=== PATIENT | female | born 1990 | race Caucasian/White ===

== ENCOUNTER 2023-06-22 11:20 | Emergency (ER) | payer BC, SELFPAY ==
[2023-06-22 11:20] VITALS: BMI 24.3
[2023-06-22 11:25] VITALS: BP 137/75
--- NOTE | 2023-06-22 11:41 | ED.GENMED ---
History of Present Illness
General
Chief Complaint: Visual Problem
Time Seen by Provider: 06/22/23 11:33
Travel History
Have you had any contact with someone who has COVID-19?: No
Do you have any symptoms of coronavirus? Fever > 100 degrees, chills, cough, shortness of breath, sore throat, loss of taste or smell, muscle aches, or headache?: No
History of Present Illness
History of Present Illness:
32-year-old female with history of ADHD on Adderall presents to the emergency department for evaluation of complete loss of vision in her left eye. She reports a similar episode occurring to both eyes on Thursday night, lasting approximately 12
hours, associated with a headache. She states that she declined to seek medical evaluation at that time due to being at home with her young children. Symptoms resolved the following day and again recurred this morning. Initially present in the
left eye, does not report any right eye symptoms on my initial evaluation. Does report a mild left-sided headache. No diplopia, nausea, vomiting, neck pain. She does report widespread extremity paresthesias and generalized weakness. No history
of migraine headaches. Notes that she fell off a horse 2 weeks ago and struck her head but denies any significant headache after that injury.
Past History
Past History
ED Past Medical History: None
ED Past Surgical History:
Social History
Tobacco: Non-smoker
Drug: None
Personal: Single
Living: with family
Employment: Employed
Family History
Family History: Hypertension
Review of Systems
Review of Systems
Allergies reviewed?: Yes
All Other Systems: ROS reviewed and negative except as documented in HPI and ROS
Phy Exam
Physical Exam
Physical Exam:
GEN: Well appearing, NAD, WDWN
HEENT: Oral mucosa moist, no scleral icterus, no nasal congestion
Cardiac: Regular rate
Lung: No respiratory distress, no tachypnea
MSK: No gross deformity or injuries
Skin: Good color, no pallor or jaundice, no rashes
Neuro: AO x3
Cranial nerves: Normal extraocular motions bilaterally, patient reports light perception only in the left eye however peripheral visual lowery appear to be intact. On initial evaluation right eye vision is normal
Bilateral upper and lower extremity strength is globally diminished although this appears to be due to poor effort, sensation is normal
Psych: Calm, cooperative
Course
Orders/Labs/Results
Orders:
Orders
06/22/23 11:40
Ketorolac [Toradol] 15 mg IV NOW STA
Metoclopramide [Reglan] 10 mg IV NOW STA
Test Result ONCE
06/22/23 11:41
CT Head W/o Iv Contrast Urgent
Comment:
Reason For Exam: vision loss
06/22/23 12:02
Complete Blood Count/With Diff Urgent
Comprehensive Metabolic Panel Urgent
HCG, Serum Qualitative Screen Urgent
06/22/23 13:43
Consult Neurology [NEUROLOGY CONSULT] Urgent
Consulting Provider: Davion Headley
Was physician already notified: Yes
06/22/23 13:49
Valproate Sodium [Depacon] 500 mg 0.9% Sodium Chloride 50 ml [Nss] 50 ml IV NOW
06/22/23 14:01
MR Brain W/o & With Contrast Stat
Comment:
Reason For Exam: visual loss
Recent pill cam endoscopy?: No
Lorazepam [Ativan] 1 mg PO NOW STA
Abnormal Lab Results
06/22/23
12:02
Creatinine 0.5 L mg/dL
(0.6-1.0)
06/22/23 12:02
06/22/23 12:02
Vital Signs
Initial and Last Documented VS:
Initial Vital Signs
Temp Pulse Resp BP Pulse Ox
98.0 F 88 20 137/75 100
06/22/23 11:25 06/22/23 11:25 06/22/23 11:25 06/22/23 11:25 06/22/23 11:25
Last Documented Vital Signs
Temp Pulse Resp BP Pulse Ox
98.0 F 75 16 114/76 98
06/22/23 11:25 06/22/23 17:28 06/22/23 17:28 06/22/23 17:28 06/22/23 17:28
MDM/Problems Addressed
MDM/Problems Addressed:
32-year-old female presenting with acute onset vision loss, left eye progressing to the right eye. Initial head CT was unremarkable. Due to lack of other neurologic symptoms it was felt that this may represent a migrainous disorder treated with
antimigraine agents with no improvement. Neurology was then urgently consulted who requested stat brain MRI. Stat brain MRI shows no abnormalities. Given that there are no explainable sources of this at neurology request tertiary care transfer
for further neurologic workup. We did discuss potential indications for lumbar puncture however at this time given the patient's visual abnormalities seem to be improving we will hold off. Discussed the case with [facility] and they said
except the patient via transfer
*Critical Care Note
Total Time (30-74mins, 75-104mins- exclusive of procedures): Not Applicable
Update Note
Update Note:
1525: D/W Neurology, MRI negative for acute process. Unclear cause of symptoms. Neurology requesting STAT transfer to tertiary care center for further workup
ED Attending Note
-
Portions of this chart may have been created with voice recognition software.� Occasional wrong word or��sound alike� substitutions may have occurred due to the inherent limitations of voice recognition software.
Discharge Plan
Departure
Patient Disposition: Acute Care Hospital
Date of Disposition: 06/22/23
Time of Disposition: 16:28
Discharge Problem:
Binocular vision loss
Prescriptions:
No Action
Theragen Tablet
1 tab PO HS
dextroamphetamine-amphetamine 20 mg Capsule,Extended Release 24hr
20 mg PO DAILY
dextroamphetamine-amphetamine 5 mg Tablet
5 mg PO DAILY@1600
Visbiome 112.5 billion cell Capsule
1 cap PO HS
Collagen Skin Renewal 30-833.3 mg Tablet
1 tab PO HS
Hormone Balancing Supplement
1 tab PO HS
Thyroid Supplement
1 tab PO HS
pantoprazole [Protonix] 40 mg tablet,delayed release (DR/EC)
40 mg PO DAILY Qty: 20 0RF
Referrals:
Debbie Cazares DO [Family Provider] -
Hospital Transfer
Other hospital: [facility]
I certify that the patient requires transfer: Yes
Discussed case with accepting physician: Dr East
Reason for transfer: higher level of care
Interventions
Interventions:
*Risk Screen - Suicide Last Done: 06/22/23 11:59
*General Assessment Last Done: 06/22/23 11:59
*Neglect/Abuse Screening Last Done: 06/22/23 11:59
*ED COVID-19 Vaccine History Last Done: 06/22/23 11:25
ED- Neurological Assessment Last Done: 06/22/23 12:00
ED-EENT Assessment Last Done: 06/22/23 11:59
ED Swallowing Screen Last Done: 06/22/23 12:02
Discharge Date and Time
Print Language: CITIZEN OF [place]
[2023-06-22 12:12] LABS: % Basophils 0.7 % (0-2); % Eosinophils 1.4 % (0-6); % Immature Granulocytes 0.1 % (0-0.5); % Lymphocytes 26.2 % (20.5-51.1); % Monocytes 5.3 % (1.7-9.3); % Neutrophils 66.3 % (42.2-75.2); Absolute Basophils 0.1 10^3/uL (0-0.2); Absolute Eosinophils 0.1 10^3/uL (0-0.7); Absolute Lymphocytes 1.9 10^3/uL (1.2-3.4); Absolute Monocytes 0.4 10^3/uL (0.1-0.6); Absolute Neutrophils 4.8 10^3/uL (1.4-6.5); Hematocrit 38.7 % (37.0-47.0); Hemoglobin 13.2 g/dL (12.0-16.0); Mean Corp Hgb Conc. 34.1 g/dL (33.0-37.0); Mean Corpuscular Hgb 30.6 pg (27.0-31.0); Mean Corpuscular Volume 89.6 fL (81.0-99.0); Mean Platelet Volume 9.5 fL (7.4-10.4); Nucleated Red Blood Cells % 0 %; Platelet Count 279 10^3/uL (130-400); Red Blood Cell Count 4.32 10^6/uL (4.20-5.40); White Blood Cell Count 7.3 10^3/uL (4.8-10.8)
[2023-06-22 12:21] LABS: HCG, Serum Qualitative Screen Negative
[2023-06-22 12:24] LABS: ALT (SGPT) 17 U/L (0-35); AST (SGOT) 25 U/L (14-36); Albumin 4.7 g/dl (3.5-5.0); Alkaline Phosphatase 54 U/L (38-126); Blood Urea Nitrogen 13 mg/dl (7-17); Calcium 10.2 mg/dl (8.4-10.2); Carbon Dioxide 29 mmol/L (22-30); Chloride 100 mmol/L (98-107); Estimated Creatinine Clearance 122 ml/min; Glucose 91 mg/dl (70-99); Potassium 4.1 mmol/L (3.5-5.1); Sodium 136 mmol/L (135-145); Total Bilirubin 0.6 mg/dl (0.2-1.3); Total Protein 7.3 g/dl (6.3-8.2); eGFR > 60.00
[2023-06-22] MEDS: TORADOL 15 MG IV (12:44)
[2023-06-22] MEDS: REGLAN 10 MG IV (12:45)
[2023-06-22 12:58] VITALS: BP 109/68
--- NOTE | 2023-06-22 13:51 | CON.NEURO4 ---
Addendum entered and electronically signed by Davion Headley MD 06/22/23 16:04:
Studies reviewed.
I have personally examined the patient. I reviewed and agree with the DATA PROCESSING CONTROL CLERK's Note.
My addenda:
Awake, alert, interactive. No acute distress.
No evidence of papilledema bilaterally
Speech intact. No counting fingers bilaterally.
Follows 2-step requests w/o difficulty. No tremor.
Extra-ocular movements grossly intact.
Facial movements full and symmetric. Hearing intact to normal conversational volume.
Normal UE movements bilaterally.
Neck: full ROM.
Chest: no dyspnea
Heart: no JVD
Ext: (-) Clubbing, (-) Cyanosis, (-) Edema
IMPRESSIONS/RECOMMENDATIONS:
Abrupt onset of blindness bilaterally
? Posterior circulation dysfunction, acephalgic migraine with aura, idiopathic intracranial hypertension, Priscilla's, functional neurological disorder
Urgent MRI of brain with and without contrast
Consideration for lumbar puncture
Consideration for therapies to remediate headache if same arises
D/W patient / nursing
Will continue to follow patient.
Original Note:
Documented by User: Anabel Domingo NP 06/22/23 14:53
Consultation - Neurology 4
-
CONSULTING PHYSICIAN: Davion Headley MD
REFERRING PHYSICIAN: ER/Silas Escobar PA-C
DICTATED BY: MEETA Robles
DATE/TIME OF REQUEST: 06/22/23
DATE/TIME OF CONSULTATION: 06/22/23
Reason for Consultation: Headache, left eye vision loss, left hand paresthesias
History of Present Illness:
This is a 32-year-old female who has presented to the hospital with report of vision loss. Patient reports that three nights ago on 06/19/23 she had a headache. The following day on 06/20/23 here left eye vision was blurry initially, and then she had
total vision loss except for seeing light in the left eye. She took a nap, and about three hours later her vision was still blurry but improved. She continued to have slightly blurry vision bilaterally over the next several days. This morning
(06/22/23), she woke up and her left eye was very blurry again. She changed her contact several times thinking it was dirty. At 1100 she was in a work meeting and had complete loss of vision in her left eye except for seeing light. She proceeded to
drive to the ER, and on arrival here around 1200 she had complete loss of vision in the right eye as well. CT head was obtained on arrival in the ER and is negative for any acute abnormalities. She is not a candidate for TNK/IAT due to unclear
diagnosis, NIHSS<6. She received Reglan, Toradol, and valproic acid with no relief of symptoms. She denies any head or neck pain but reports feeling 'bubbles' in her entire head, like a seltzer water sensation. She also reports numbness/tingling in
bilateral hands/feet today, which she had on 06/20/23 as well. She denies any speech/swallow difficulty, nausea, focal weakness, chest pain, palpitations, and shortness of breath. She reports rare headaches in the past associated with slight blurry
vision, triggered by absence of caffeine. She denies any photo/phono, nausea/vomiting with those headaches. She has a history of head/neck trauma from falling off of a horse in the past. She wears contacts at baseline and has early stages of macular
degeneration in her left eye. She denies any history of TIA, stroke, or events like this in the past and she is not taking any blood-thinning medications.
Past Medical History: ADHD, vitamin D deficiency, head trauma from falling of a horse
Surgical History: , breast augmentation
Family History: Reviewed and noncontributory.
Social History: Denies tobacco and illicit drug use. Occasional alcohol.
Allergies: Bactrim, melon, nuts, seeds.
Home Medications: See below.
Review of Symptoms:
Patient denies any fever, headache, chest pain, shortness of breath, GI or symptoms.
�Per the HPI.�All systems are reviewed negative except above.
Physical Exam:
The patient is afebrile, abdomen is nondistended, breathing is unlabored, skin is warm and dry, no edema.
NIH Stroke Scale:
I performed the NIH stroke scale on the patient on 06/22/23 at 1400. The patient scored 3 points on the NIH stroke scale assessment, which were assigned as follows: See below.
Neurologic Examination:
The patient is awake, alert and oriented x 3. She is able to follow commands and answer questions appropriately. There is no aphasia or dysarthria. On cranial nerve assessment, pupils are 3 mm bilateral, round and reactive to light and
accommodation. Visual linares are completely absent. She can distinguish light but not color or movement. Extraocular movements are intact. Facial sensations are intact and bilaterally symmetrical, there is no facial asymmetry. Hearing is intact
bilaterally to normal conversation volume. Tongue palate and uvula are midline. Sternocleidomastoid strengths are full bilaterally. Motor strengths are 5/5 bilateral upper and lower extremities on medical research [place] scale. There is no drift or
involuntary movement noted. Deep tendon reflexes are 2+ bilateral upper and lower extremities and Babinski is absent bilaterally. There was no extinction noted on double simultaneous stimulation. Coordination is intact by finger to nose bilaterally.
Lab Results: See below.
Neuro Imaging:
1. CT Head 06/22/23: Normal head CT. No significant change compared to prior study.
Differentials for the patient's presentation include:
1. Concern for acute stroke causing total vision loss.
2. Complicated migraine possibly producing vision loss.
3. Eye problem possible
4. Demyelinating disease less likely but possible
Patient has the following risk factors for their symptoms: None
IV Tenecteplase/IAT candidacy: Not a candidate due to unclear diagnosis, NIHSS <6.
Recommendations:
-Obtaining a STAT MRI brain. Provide lorazepam 1mg on-call for MRI due to claustrophobia.
-Will base remainder of plan of care based on MRI brain results.
Discussed patient care with: Dr. Headley, the patient
Vital Signs and Labs
-
Vital Signs and Labs:
Vital Signs
Temp Pulse Resp BP Pulse Ox
98.0 F 76 18 109/68 98
06/22/23 11:25 06/22/23 12:58 06/22/23 12:58 06/22/23 12:58 06/22/23 12:58
Lab Results
06/22/23 12:02
06/22/23 12:02
Sodium 136 mmol/L (135-145) 06/22/23 12:02
Potassium 4.1 mmol/L (3.5-5.1) 06/22/23 12:02
BUN 13 mg/dl (7-17) 06/22/23 12:02
Glucose 91 mg/dl (70-99) 06/22/23 12:02
Calcium 10.2 mg/dl (8.4-10.2) 06/22/23 12:02
Medications
-
Home Medications
�Medication �Instructions �Recorded
Hormone Balancing Supplement 1 tab PO 10/08/22
Lactobac no.2-Bifidobac no.1-S. 1 cap PO 10/08/22
thermo 112.5 billion cell capsule
(Visbiome)
Thyroid Supplement 1 tab PO 10/08/22
ascorbic acid 30 mg-collagen, 1 tab PO 10/08/22
hydrolyzed 833.3 mg tablet
(Collagen Skin Renewal)
dextroamphetamine-amphetamine 5 mg 5 mg PO DAILY@1600 10/08/22
tablet
dextroamphetamine-amphetamine ER 20 mg PO DAILY 10/08/22
20 mg 24hr capsule,extend release
pantoprazole 40 mg tablet,delayed 40 mg PO DAILY #20 tabs 10/08/22
release (Protonix)
therapeutic multivitamin 1 tab PO 10/08/22
NIH Stroke Score
Subsequent NIH Scale
Date of Subsequent NIH Scale: 06/22/23
Time of Subsequent NIH Scale: 14:00
NIH Stroke Score
Level of Consciousness: 0 - Alert
LOC Questions: 0-Answers both correctly
LOC Commands: 0-Performs both correctly
Best Horizontal Gaze: 0-Normal
Visual Linares: 3=Bilateral hemianopia
Facial Palsy: 0=Normal, symmetrical
Motor - Right Arm: 0=No drift 10 seconds
Motor - Left Arm: 0=No drift 10 seconds
Motor - Right Le-No drift 5 seconds
Motor - Left Le-No drift 5 seconds
Limb Ataxia: 0-Absent
Sensation: 0-Normal
Best Language: 0-No aphasia
Dysarthria: 0-Normal
Extinction and Inattention: 0-No abnormality
Total Score:: 3

Documented by User: Davion Headley MD 06/22/23 15:22
Consultation - Neurology 4
-
CONSULTING PHYSICIAN: Davion Headley MD
REFERRING PHYSICIAN: MARIN/Silas Escobar PA-C
DICTATED BY: MEETA Robles
DATE/TIME OF REQUEST: 06/22/23
DATE/TIME OF CONSULTATION: 06/22/23
Reason for Consultation: Headache, left eye vision loss, left hand paresthesias
History of Present Illness:
This is a 32-year-old female who has presented to the hospital with report of vision loss. Patient reports that three nights ago on 06/19/23 she had a headache. The following day on 06/20/23 here left eye vision was blurry initially, and then she had
total vision loss except for seeing light in the left eye. She took a nap, and about three hours later her vision was still blurry but improved. She continued to have slightly blurry vision bilaterally over the next several days. This morning
(06/22/23), she woke up and her left eye was very blurry again. She changed her contact several times thinking it was dirty. At 1100 she was in a work meeting and had complete loss of vision in her left eye except for seeing light. She proceeded to
drive to the ER, and on arrival here around 1200 she had complete loss of vision in the right eye as well. CT head was obtained on arrival in the ER and is negative for any acute abnormalities. She is not a candidate for TNK/IAT due to unclear
diagnosis, NIHSS<6. She received Reglan, Toradol, and valproic acid with no relief of symptoms. She denies any head or neck pain but reports feeling 'bubbles' in her entire head, like a seltzer water sensation. She also reports numbness/tingling in
bilateral hands/feet today, which she had on 06/20/23 as well. She denies any speech/swallow difficulty, nausea, focal weakness, chest pain, palpitations, and shortness of breath. She reports rare headaches in the past associated with slight blurry
vision, triggered by absence of caffeine. She denies any photo/phono, nausea/vomiting with those headaches. She has a history of head/neck trauma from falling off of a horse in the past. She wears contacts at baseline and has early stages of macular
degeneration in her left eye. She denies any history of TIA, stroke, or events like this in the past and she is not taking any blood-thinning medications.
Past Medical History: ADHD, vitamin D deficiency, head trauma from falling of a horse
Surgical History: , breast augmentation
Family History: Reviewed and noncontributory.
Social History: Denies tobacco and illicit drug use. Occasional alcohol.
Allergies: Bactrim, melon, nuts, seeds.
Home Medications: See below.
Review of Symptoms:
Patient denies any fever, headache, chest pain, shortness of breath, GI or symptoms.
�Per the HPI.�All systems are reviewed negative except above.
Physical Exam:
The patient is afebrile, abdomen is nondistended, breathing is unlabored, skin is warm and dry, no edema.
NIH Stroke Scale:
I performed the NIH stroke scale on the patient on 06/22/23 at 1400. The patient scored 3 points on the NIH stroke scale assessment, which were assigned as follows: See below.
Neurologic Examination:
The patient is awake, alert and oriented x 3. She is able to follow commands and answer questions appropriately. There is no aphasia or dysarthria. On cranial nerve assessment, pupils are 3 mm bilateral, round and reactive to light and
accommodation. Visual linares are completely absent. She can distinguish light but not color or movement. Extraocular movements are intact. Facial sensations are intact and bilaterally symmetrical, there is no facial asymmetry. Hearing is intact
bilaterally to normal conversation volume. Tongue palate and uvula are midline. Sternocleidomastoid strengths are full bilaterally. Motor strengths are 5/5 bilateral upper and lower extremities on medical research [place] scale. There is no drift or
involuntary movement noted. Deep tendon reflexes are 2+ bilateral upper and lower extremities and Babinski is absent bilaterally. There was no extinction noted on double simultaneous stimulation. Coordination is intact by finger to nose bilaterally.
Lab Results: See below.
Neuro Imaging:
1. CT Head 06/22/23: Normal head CT. No significant change compared to prior study.
Differentials for the patient's presentation include:
1. Concern for acute stroke causing total vision loss.
2. Complicated migraine possibly producing vision loss.
3. Eye problem possible
4. Demyelinating disease less likely but possible
Patient has the following risk factors for their symptoms: None
IV Tenecteplase/IAT candidacy: Not a candidate due to unclear diagnosis, NIHSS <6.
Recommendations:
-Obtaining a STAT MRI brain. Provide lorazepam 1mg on-call for MRI due to claustrophobia.
-Will base remainder of plan of care based on MRI brain results.
Discussed patient care with: Dr. Headley, the patient
NIH Stroke Score
NIH Stroke Score
Total Score:: 3
[2023-06-22] MEDS: ATIVAN 1 MG PO (14:21)
[2023-06-22 15:45] VITALS: BP 112/72
[2023-06-22 17:28] VITALS: BP 114/76
[2023-06-22 19:00] VITALS: BP 96/67
[2023-06-22 20:45] VITALS: BP 101/64
== END 2023-06-22 22:09 | disposition short-term general hospital (02) ==
LOC: EMR 11:20
PROVIDERS: Physician Assistant; CONSULT PHYSICIAN Psychiatry & Neurology Neurology; EMERGENCY PHYSICIAN Emergency Medicine; FAMILY PHYSICIAN Internal Medicine
DX: H54.7 Unspecified visual loss (principal); R51.9 Headache, unspecified; F90.9 Attention-deficit hyperactivity disorder, unspecified type; Z79.899 Other long term (current) drug therapy; Z82.49 Family history of ischemic heart disease and other diseases of the circulatory system; Z88.1 Allergy status to other antibiotic agents
CPT/HCPCS: 99284; 96374; 96375; 70450; 70553; 80053; 84703; 85025; A9575

== ENCOUNTER 2024-12-04 20:11 | Emergency (ER) | payer BC, SELFPAY ==
[2024-12-04 20:20] VITALS: BP 136/83
[2024-12-04 20:38] LABS: Hematocrit 37.7 % (37.0-47.0); Hemoglobin 12.9 g/dL (12.0-16.0); Mean Corp Hgb Conc. 34.2 g/dL (33.0-37.0); Mean Corpuscular Volume 90.6 fL (81.0-99.0); Nucleated Red Blood Cells % 0 %; Platelet Count 280 10^3/uL (130-400); Red Cell Dist. Width 12.2 % (11.5-14.5)
[2024-12-04 20:52] LABS: COVID-19 Antigen Negative (Negative)
[2024-12-04 20:59] LABS: HCG, Serum Qualitative Screen Negative
[2024-12-04 21:03] LABS: ALT (SGPT) 23 U/L (0-35); AST (SGOT) 29 U/L (14-36); Albumin 4.5 g/dl (3.5-5.0); Alkaline Phosphatase 52 U/L (38-126); Blood Urea Nitrogen 9 mg/dl (7-17); Calcium 9.6 mg/dl (8.4-10.2); Carbon Dioxide 25 mmol/L (22-30); Chloride 106 mmol/L (98-107); Glucose 78 mg/dl (70-99); Potassium 3.6 mmol/L (3.5-5.1); Sodium 139 mmol/L (135-145); Total Protein 7.3 g/dl (6.3-8.2); eGFR > 60.00
[2024-12-04 21:12] LABS: Troponin I < 0.012 ng/ml
[2024-12-04 23:03] VITALS: BP 131/66
[2024-12-04 23:04] VITALS: BMI 26.7
[2024-12-04 23:43] LABS: Acetaminophen < 10 ug/ml (10-30)
[2024-12-05] VITALS: BP 131/75
--- NOTE | 2024-12-05 00:36 | ED.GENMED ---
History of Present Illness
General
Chief Complaint: Dizziness
Source: patient, previous radiology exam and previous hospital records
Exam Limitations: none
Time Seen by Provider: 12/04/24 23:54
Nursing documentation reviewed up to this point in time: agreed with
History of Present Illness
History of Present Illness:
The patient is a 34-year-old female who presents with a two-week history of illness that initiated with symptoms damon to a common cold, including a sore throat. The patient reports typically recovering from similar illnesses within two days,
however, she noted her condition worsening significantly over the past few days. She details experiencing pressure in the back of the head, congestion, and pain that intensifies upon leaning down. The patient has also had episodes of fever, though
unable to specify the temperature, and has been self-medicating with ulif-ilg-flscyai remedies for symptom relief without significant improvement. The patient expresses concern that her symptoms may indicate sinusitis, having researched this
possibility online.
She denies history of frequent URIs nor frequent sinusitis.
Prior records reviewed. 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 CT of the head unremarkable. 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
without acute infarct, no evidence of demyelinating disease. There was also note of severe bilateral maxillary sinusitis. During that ED visit, patient was transferred to [facility] for further evaluation. She states she promptly left
[facility], followed up with her PCP and then with neurologist. Concern was for possible decreased brain circulation and she was placed on a blood thinner for 6 months then discontinued. She admits that she has not followed up with the neurologist but
has had no return of visual loss symptoms.
Past History
Past History
ED Past Medical History: Psychiatric (ADHD)
ED Past Surgical History: and Other (Breast augmentation)
Social History
Tobacco: Non-smoker
Drug: None
Personal: Single
Living: with family
Employment: Employed
Family History
Family History: Hypertension
Phy Exam
Physical Exam
Physical Exam:
GENERAL: 34-year-old female appears her stated age, awake and alert, pleasant, appears in no acute distress. Mild nasal, stuffy voice is noted. She is afebrile. No cough appreciated.
EYE: pupils equal and reactive. Extraocular muscles intact. Anicteric
NECK: Supple, nontender, no meningismus, no significant adenopathy.
ENT: posterior pharynx is without injection nor edema, there is mild to moderate pearly to pale yellow postnasal drip, oral mucosa is moist. TM clear b/l, significantly boggy and injected turbinates bilaterally right greater than left with mucopus
noted left nasal passage. Mild maxillary tenderness to palpation. No facial edema nor erythema.
CARDIAC: Regular rate and rhythm. no murmur.
LUNGS: Clear breath sounds bilaterally, no acute respiratory distress, no wheezes/rales/rhonchi
ABDOMEN: Soft, nondistended, without focal tenderness, no r/g, no cvat. normoactive BS.
NEUROLOGICAL: Alert and oriented x3, no focal neuro deficits. Gait is steady.
SKIN: Warm and dry, normal color, skin intact. No rash.
MUSCULOSKELETAL: No C/C/E. peripheral pulses are full and equal b/l. No palpable tenderness.
PSYCH: Normal and appropriate interaction.
Course
Orders/Labs/Results
Orders:
Orders
12/04/24 20:25
Electrocardiogram (*1) Urgent
Reason for Study: Chest Pain
EKG- Treatment ONCE
Test Result ONCE
12/04/24 20:31
Acetaminophen Urgent
Comment: ADD ON
COVID-19 Antigen Urgent
Source: Nasal Swab
Complete Blood Count/With Diff Urgent
Comprehensive Metabolic Panel Urgent
HCG, Serum Qualitative Screen Urgent
Comment: Notify provider if positive test present
Troponin I Urgent
Influenza A+B Rapid Molecular Urgent
EDUARDO Source: Nasal Swab
Specimen Description:
12/04/24 23:10
Add On- LAB Urgent
Tests Added?: acetaminophen
12/05/24 00:36
Amoxicillin 875 mg/Clav 125 mg [Augmentin 875 mg/125 mg] 1 tablet PO NOW STA
Prednisone [Deltasone] 50 mg PO NOW STA
Abnormal Lab Results
12/04/24
20:31
RBC 4.16 L 10^6/uL
(4.20-5.40)
Absolute Monos (auto) 0.8 H 10^3/uL
(0.1-0.6)
Creatinine 0.5 L mg/dL
(0.6-1.0)
Acetaminophen < 10 L ug/ml
(10-30)
12/04/24 20:31
12/04/24 20:31
Vital Signs
Initial and Last Documented VS:
Initial Vital Signs
Temp Pulse Resp BP Pulse Ox
98.3 F 92 16 136/83 96
12/04/24 20:20 12/04/24 20:20 12/04/24 20:20 12/04/24 20:20 12/04/24 20:20
Last Documented Vital Signs
Temp Pulse Resp BP Pulse Ox
98.3 F 92 16 131/66 98
12/04/24 20:20 12/04/24 20:20 12/04/24 20:20 12/04/24 23:03 12/04/24 23:45
MDM/Problems Addressed
Differential Diagnosis Includes:
The Differential Diagnosis includes, in no particular order and is not limited to:
1. Acute bacterial sinusitis
2. Viral upper respiratory infection
3. Allergic rhinitis
4. Tension headache
5. Migraine headache
6. Cluster headache
7. Temporal arteritis
8. Meningitis
9. Hypertensive crisis
10. Subacute sinusitis
MDM/Problems Addressed:
Acute:
- Suspected Viral/Bacterial Sinusitis
- Recent worsening cold-like symptoms
Chronic:
- History of blood circulation issue
- Severe maxillary sinusitis noted on previous MRI
Overall well in appearance. Sinusitis noted on exam.
Labs are reassuring, normal white blood cell count, unremarkable chemistries.
She reports taking a fair amount of crjs-cez-tamealc medication including a fair amount of Tylenol however acetaminophen level is less than 10.
COVID and influenza are testing are negative.
EKG is within normal limits.
Patient remains hemodynamically stable. No focal neurodeficits. Ambulatory with steady unaided gait.
At this point no indication for imaging.
Recommend initiation of a course of Augmentin for acute bacterial sinusitis along with a tapering course of prednisone for sinus congestion/inflammation as well as initiation of Flonase.
Recommend follow-up with PCP for recheck and if symptoms persist, ENT evaluation.
Return precautions discussed.
*Pulse Oximetry
SaO2: 98
Oxygen Mode of Delivery: Room air
Patient hypoxic: no
*EKG
Interpreted by ED Provider?: Yes
Interpretation: normal
Comparison EKG: no comparison EKG present
Rate: normal
Rhythm: sinus
[place]: normal axis
Interval: normal interval
QRS Pattern: normal QRS
Ischemia: no ischemia
*Critical Care Note
Total Time (30-74mins, 75-104mins- exclusive of procedures): Not Applicable
ED Attending Note
-
Portions of this chart may have been created with voice recognition software.� Occasional wrong word or��sound alike� substitutions may have occurred due to the inherent limitations of voice recognition software.
Discharge Plan
Departure
Patient Disposition: Home (Routine Discharge)
Date of Disposition: 12/05/24
Time of Disposition: 00:36
Patient with high blood pressure during this ER visit?: No
Condition: Good
Discharge Problem:
Acute bacterial sinusitis
Instructions: Sinusitis in adults - ED (DC)
Prescriptions:
New
amoxicillin-pot clavulanate 875-125 mg tablet
1 tab PO BID Qty: 20 0RF
prednisone 10 mg Tablet
See Rx Instructions .ROUTE .COMPLEX Qty: 30 0RF
Rx Instructions:
Take By Mouth:
40 mg daily x3 days, 30 mg daily x3 days,
20 mg daily x3 days, 10 mg daily x3 days.
fluticasone propionate 50 mcg/actuation spray,suspension
2 spray intranasal DAILY Qty: 16 0RF
Rx Instructions:
2 sprays each nostril once daily
No Action
Theragen Tablet
1 tab PO HS
dextroamphetamine-amphetamine 20 mg Capsule,Extended Release 24hr
20 mg PO DAILY
dextroamphetamine-amphetamine 5 mg Tablet
5 mg PO DAILY@1600
Visbiome 112.5 billion cell Capsule
1 cap PO HS
Collagen Skin Renewal 30-833.3 mg Tablet
1 tab PO HS
Hormone Balancing Supplement
1 tab PO HS
Thyroid Supplement
1 tab PO HS
pantoprazole [Protonix] 40 mg tablet,delayed release (DR/EC)
40 mg PO DAILY Qty: 20 0RF
Referrals:
Debbie Cazares DO [Family Provider, Internal Medicine] - Call in 1-3 days for appt
Willis Hanna MD [Active, ENT] - As needed
Interventions
Interventions:
*Risk Screen - Suicide Last Done: 12/04/24 20:20
*General Assessment Last Done: 12/04/24 22:59
*Neglect/Abuse Screening Last Done: 12/04/24 20:20
*ED- Fall Risk Assessment Last Done: 12/04/24 22:59
*ED COVID-19 Vaccine History Last Done: 12/04/24 22:59
ED- Neurological Assessment Last Done: 12/04/24 22:59
Discharge Date and Time
Print Language: SWEDISH
[2024-12-05] MEDS: DELTASONE 50 MG PO (00:46)
[2024-12-05] MEDS: AUGMENTIN 875 MG/125 MG 1 TABLET PO (00:46)
== END 2024-12-05 00:50 | disposition home or self-care (01) ==
LOC: EMR 20:11
PROVIDERS: Emergency Medicine; EMERGENCY PHYSICIAN Emergency Medicine; FAMILY PHYSICIAN Internal Medicine
DX: J01.90 Acute sinusitis, unspecified (principal); B96.89 Other specified bacterial agents as the cause of diseases classified elsewhere
CPT/HCPCS: 99284; 80053; 80143; 84484; 84703; 85025; 87502; 87811; 93005